=== PATIENT | female | born 1935 | race Caucasian/White ===

== ENCOUNTER 2016-07-09 13:04 | Inpatient (IN) | payer MEDICARE, OTHER ==
--- NOTE | ~2016-07-09 | IDS ---
Interim Discharge Summary [facility] [address] [address] NAME: DERECK YOUNGBLOOD : 33 STATUS : ADM IN PAT#: [id number] AGE: 80 ADM/REG DATE : 07/09/16 MR#: [id number] REPORT SERV DATE: 07/13/16 DICTATED BY: RIAZ COLLINS DATE: 07/13/16 REPORT STATUS : Draft TRANSCRIBED BY: MODOmid DATE: 07/13/16 ADMISSION DATE: 07/09/2016 DISCHARGE DATE: Date of transfer to my colleague is 07/14/2016. Condition of the patient is stable. Diagnoses so far include melena or dark stool, this has resolved. The exact cause for this dark stool has not been found yet despite the patient having undergone EGD, colonoscopy, and also capsule endoscopy. EGD only revealed esophagitis and gastritis, and colonoscopy revealed diverticulosis with no bleeding. Hence, the patient underwent a PillCam study, and this has been completed also, and GI finally has signed off saying that as her hemoglobin and hematocrit are stable, there is no need for any further GI workup. However, the patient has retained the PillCam and has not passed it in her stool yet as she has not had a bowel movement. Hence, her discharge is being held as the PillCam has not been passed. Other diagnoses that are stable at this time include the following: Chronic systolic and diastolic heart failure with an ejection fraction of about 50%, global ventricular enlargement, left atrial enlargement and moderate right atrial enlargement, moderate mitral regurgitation, severe tricuspid regurgitation, moderate pulmonary hypertension. All these findings on echocardiogram. Chronic atrial fibrillation for which the patient takes Coumadin on a regular basis. As the patient does not have any melanotic stools anymore, her Coumadin has been resumed today. Her INR is subtherapeutic, but hopefully with her home dose of Coumadin that she will be back on her INR and will get therapeutic eventually. Other problems also include bilateral thyroid nodules. These have been biopsied, and they are benign. BRIEF HOSPITAL COURSE: The patient is an 80-year-old female patient, who was admitted with signs and symptoms as outlined in history and physical exam. Essentially, the main reason for admission was dark stools. GI was consulted. The patient also requested that Dr. Major, her policy intern, be consulted while in the hospital to clear her for colonoscopy. Dr. Major did consult and cleared her for EGD and colonoscopy at this time, and hence, the patient underwent both and findings have been dictated above and no signs of active or acute bleeding were found. Hence, the patient underwent a PillCam study, and capsule endoscopy studies are pending by GI at this time, but the problem now is that the patient has retained PillCam, and she has not passed it yet. Once the patient passes the PillCam, she can be discharged home. At this time, we have restarted the patient on Coumadin, her regular home dose, so she can stay therapeutic on her INR and INR be between 2 and 3 for chronic atrial fibrillation. The patient has tolerated the Coumadin so far and has no more episodes of melena. Please discharge the patient home once her PillCam is passed. My colleague will be taking over care of this patient on 07/14/2016. Interim Discharge Summary [address] [address] NAME: DERECK YOUNGBLOOD : 33 STATUS : ADM IN PAT#: [id number] AGE: 80 ADM/REG DATE : 07/09/16 MR#: [id number] REPORT SERV DATE: 07/13/16 DICTATED BY: RIAZ COLLINS DATE: 07/13/16 REPORT STATUS : Draft TRANSCRIBED BY: YEYO DATE: 07/13/16 SARITHA/YEYO Riaz Collins M.D. / [id number] CC: Brooke Bernstein II, M.D.
--- NOTE | ~2016-07-09 | EGD ---
EGD REPORT [facility] [address]. [address] NAME: DERECK SINGER : 33 STATUS : DIS IN PAT#: [id number] AGE: 80 ADM/REG DATE : 07/09/16 MR#: [id number] REPORT SERV DATE: 07/14/16 DICTATED BY: DAVID SANTIAGO DATE: 07/14/16 REPORT STATUS : Draft [facility]: [facility] DATE: 07/14/16 Endoscopy Center Patient Name: Dereck Singer Date of : 1935 Attending MD: DAVID SANTIAGO MD Procedure Date No Time: 07/12/2016 Procedure: Colonoscopy Indications: Melena Referring MD: MELLISA WHYTE II Medicines: Sedation Required Anesthesia Staff Assistance Complications: No immediate complications. Estimated blood loss: Minimal. Procedure: Pre-Anesthesia Assessment: - ASA Grade Assessment: III - A patient with severe systemic disease. After I obtained informed consent, the scope was passed under direct vision. Throughout the procedure, the patient's blood pressure, pulse, and oxygen saturations were monitored continuously. The PCF [id number] was introduced through the anus and advanced to the cecum, identified by appendiceal orifice and ileocecal valve. The colonoscopy was performed without difficulty. The patient tolerated the procedure well. The quality of the bowel preparation was good. The ileocecal valve, appendiceal orifice and rectum were photographed. Findings: A sessile polyp was found in the cecum. The polyp was 6 mm in size. The polyp was removed with a cold snare. Resection and retrieval were complete. A few small-mouthed diverticula were found in the sigmoid colon. The exam was otherwise without abnormality. Impression: - One 6 mm polyp in the cecum. Resected and retrieved. - Diverticulosis in the sigmoid colon. - The examination was otherwise normal. Recommendation: - [facility] patient [facility]. - NPO today. - Await pathology results. - Continue present medications. - To visualize the small bowel, perform video capsule endoscopy today. Procedure Code(s): --- Professional --- EGD REPORT [facility] [address]. [address] NAME: DERECK SINGER : 33 STATUS : DIS IN PAT#: [id number] AGE: 80 ADM/REG DATE : 07/09/16 MR#: [id number] REPORT SERV DATE: 07/14/16 DICTATED BY: DAVID SANTIAGO. DATE: 07/14/16 REPORT STATUS : Draft TRANSCRIBED BY: [employer] DATE: 07/14/16 [id number], Colonoscopy, flexible, proximal to splenic flexure; with removal of tumor(s), polyp(s), or other lesion(s) by snare technique Diagnosis Code(s): --- Professional --- D12.0, Benign neoplasm of cecum K92.1, Melena CPT copyright 2013 [employer]. All rights reserved. The codes documented in this report are preliminary and upon finance effectiveness manager review may be revised to meet current compliance requirements. DAVID SANTIAGO MD 07/12/2016 8:35 AM This report has been signed electronically. Number of Addenda: 0 Note Initiated On: 07/12/2016 7:26 AM Scope Withdrawal Time 0 hours 7 minutes 8 seconds [address] [address]
--- NOTE | ~2016-07-09 | DS ---
Discharge Summary [place] [id number] [facility] [place]. [address] NAME: DERECK YOUNGBLOOD : 33 STATUS : DIS IN PAT#: [id number] AGE: 80 ADM/REG DATE : 07/09/16 MR#: [id number] REPORT SERV DATE: 07/15/16 DICTATED BY: DATE: REPORT STATUS : Draft TRANSCRIBED BY: MODL DATE: 07/14/16 ADMISSION DATE: 07/09/2016 DISCHARGE DATE: 07/14/2016 The patient was admitted to the [facility]. ATTENDING PHYSICIAN: Endy Lamar M.D. CONSULTANTS: Included: 1. Dr. Shields of Gastroenterology. 2. Dr. Henok Major of Cardiology. DISCHARGE DIAGNOSES: 1. Melena, resolved. Source unclear. EGD, colonoscopy, PillCam negative for old or fresh bleeding. 2. Chronic obstructive pulmonary disease. 3. Pulmonary hypertension. 4. Obstructive sleep apnea, home CPAP-dependent. 5. Congestive heart failure, chronic, mixed systolic and diastolic. 6. Chronic atrial fibrillation, on anticoagulation, status post pacemaker placement. 7. Hypertension, controlled on home medications. 8. Hyperlipidemia. 9. Chronic kidney disease, stage II, baseline creatinine 1.1 to 1.2. 10.History of coronary artery disease with cardiac stents in 1997. 11.Degenerative disk disease of the lumbar spine and spinal stenosis. Narcotic dependent due to chronic back pain. 12.Generalized anxiety disorder, benzodiazepine dependent. 13.History of bilateral thyroid nodules, previous biopsies benign. PROCEDURES: 1. Included upper GI endoscopy on 07/11/2016 for melena shows LA grade A reflux esophagitis. Normal stomach. Normal examined duodenum. Biopsies were obtained. 2. Colonoscopy on 07/12/2016, for melena showed one 6 mm polyp in the cecum, which was resected and retrieved. Diverticulosis of the sigmoid colon. 3. Small bowel capsule endoscopy on 07/12/2016, for melena shows no active bleeding or potential source seen in the small bowel. IMAGIN. Neck CT without contrast on 07/09/2016, for voice change shows complex partially calcified 3.1 x 2.5 cm right thyroid nodule. 2.4 x 1.5 cm nodule in the left lobe of the thyroid. No adenopathy. 2. PA lateral chest x-ray on 07/09/2016, shows calcified atherosclerotic disease of the aorta. Pacemaker lead intact. Mild chronic changes in the lung rahman consistent with COPD. No lung masses or significant infiltrate seen. 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 Exaggerated kyphotic angulation in the lower T-spine. Discharge Summary [place] [id number] [facility] [place] [address] NAME: DERECK YOUNGBLOOD : 33 STATUS : DIS IN PAT#: [id number] AGE: 80 ADM/REG DATE : 07/09/16 MR#: [id number] REPORT SERV DATE: 07/15/16 DICTATED BY: DATE: REPORT STATUS : Draft TRANSCRIBED BY: MODL DATE: 07/14/16 3. Echocardiogram on 07/10/2016, shows enlarged left ventricle at end-systole, inferobasal hypokinesis, apical akinesis to dyskinesis, mild reduction in global left ventricular systolic function. Severe late left atrial enlargement with moderate right atrial enlargement. Finding suggestive of atrial fibrillation or flutter. Eccentric moderate mitral regurgitation with severe tricuspid regurgitation and moderate pulmonary hypertension. PERTINENT LABORATORY: Creatinine values ranging from 1.1 to 1.2. Liver enzymes pertinent for AST of 46, otherwise normal. BNP values between 483 and 561. Hemoglobin values between 10.5 and 11.7. Urinalysis, negative. BRIEF HISTORY: For full details, please see the previously dictated history of present illness by Dr. Rosemarie Domingo. This is an 80-year-old white female, who presented to the emergency department on 07/09/2016 with chief complaints of dark black stools, off and on for two to three weeks. The patient had some associated fatigue, intermittent epigastric abdominal pain, progressive dysphagia, and a change in voice. She takes Coumadin chronically for atrial fibrillation and was admitted through the Hospitalist Service for GI evaluation. HOSPITAL COURSE: For full details, please see the interim summary dictated by Dr. Rosemarie Domingo on 07/13/2016. The patient's Coumadin was held at admission and serial hemoglobin and hematocrit values were obtained. She was continued on a PPI and IV fluids. She had no significant decline in her hemoglobin during the admission and did not require transfusion. She remained hemodynamically stable. Gastroenterology and Cardiology saw the patient on this admission. Cardiology cleared the patient for invasive GI evaluations, which included EGD, colonoscopy, and small bowel capsule endoscopy with results as above. The patient did not experience any recurrent melena or other GI bleeding during the admission and was felt stable for discharge on 07/14/2016. She had not passed the PillCam specifically, but is also not required to do so by Gastroenterology. She will follow up with Dr. Padgett within four to six week, and recommendation was for her to continue proton pump inhibitor for six weeks total, then to be re-evaluated. She previously was taking Nexium at home, but requested to change to Protonix, and a prescription was provided. Remainder of her home medications were unchanged at the time of discharge. Her discharge INR value is 1.3. She checks her INR at home, and the results are called to Dr. Henok Major for further adjustments. The patient is due to check her INR on 07/17/2016. DISCHARGE DISPOSITION: To home, in the care of supportive family with no specific activity restrictions. She should adhere to a cardiac diet for comorbidities. Home Health is being arranged through [facility] for disease and medication management, and the patient will check her own INR with results to Dr. Major as above. FOLLOWUP: Her followup appointment will be with Dr. Padgett within four to six weeks, and she should keep any previously scheduled physician's appointments as well. Discharge Summary [address] [address] NAME: DERECK YOUNGBLOOD : 33 STATUS : DIS IN PAT#: [id number] AGE: 80 ADM/REG DATE : 07/09/16 MR#: [id number] REPORT SERV DATE: 07/15/16 DICTATED BY: DATE: REPORT STATUS : Draft TRANSCRIBED BY: YEYO DATE: 07/14/16 DISCHARGE MEDICATIONS: Include: 1. Xanax 0.5 to 1 mg p.o. three times a day. 2. Amlodipine 5 mg p.o. q.a.m. 3. Bumex 2 mg p.o. q.a.m. 4. TriCor 145 mg p.o. q.a.m. 5. Folic acid 1 mg p.o. q.a.m. 6. Hydrocodone/acetaminophen 10/325 mg p.o. four times a day. 7. Lisinopril 10 mg p.o. q.a.m. 8. Toprol-XL 100 mg p.o. q.a.m. 9. Protonix 40 mg p.o. daily. 10.Potassium chloride 40 mEq p.o. daily. 11.Viagra 50 mg p.o. three times a day. 12.Spiriva one cap inhaled q.a.m. 13.Jantoven 3.5 mg p.o. at bedtime. 14.ProAir HFA two puffs inhaled every four hours as needed. 15.Symbicort 160/4.5 two puffs inhaled twice a day. 16.Colace 100 mg p.o. daily as needed. 17.Crestor 20 mg p.o. at bedtime. 18.Lunesta 3 mg p.o. at bedtime as needed for sleep. 19.Acetaminophen 500 to 1000 mg p.o. twice a day as needed for headaches. 20.Sensipar 30 mg p.o. daily on Wednesday, Wednesday, Wednesday. 21.Aspirin 81 mg p.o. q.a.m. Thirty-five minutes was spent in completion of the discharge. ZAKI/YEYO Endy Lamar M.D. / [id number] CC: Brooke Bernstein II, M.D. Nathan Mull IV, M.D. Donald Hetzel, M.D. Leonard Hays III, M.D., [facility]
--- NOTE | ~2016-07-09 | EGD ---
EGD REPORT [facility] [address] [address] NAME: DERECK SINGER : 33 STATUS : ADM IN PAT#: [id number] AGE: 80 ADM/REG DATE : 07/09/16 MR#: [id number] REPORT SERV DATE: 07/11/16 DICTATED BY: DAVID SANTIAGO DATE: 07/11/16 REPORT STATUS : Draft [facility]ANSCRIBED BY: [facility] DATE: 07/11/16 Endoscopy Center Patient Name: Dereck Singer Date of : 1935 Attending MD: DAVID SANTIAGO MD Procedure Date No Time: 07/11/2016 Procedure: Upper GI endoscopy Indications: Iron deficiency anemia, Melena Referring MD: MELLISA WHYTE II Medicines: Sedation Required Anesthesia Staff Assistance Complications: No immediate complications. Estimated blood loss: Minimal. Procedure: Pre-Anesthesia Assessment: - ASA Grade Assessment: III - A patient with severe systemic disease. After obtaining informed consent, the endoscope was passed under direct vision. Throughout the procedure, the patient's blood pressure, pulse, and oxygen saturations were monitored continuously. The [facility] H190 [id number] was introduced through the mouth, and advanced to the third part of duodenum. The upper GI endoscopy was accomplished without difficulty. The patient tolerated the procedure well. Findings: LA Grade A (one or more mucosal breaks less than 5 mm, not extending between tops of 2 mucosal folds) esophagitis with no bleeding was found in the lower third of the esophagus. The entire examined stomach was normal. The examined duodenum was normal. Biopsies were taken with a cold forceps for histology. Impression: - LA Grade A reflux esophagitis. - Normal stomach. - Normal examined duodenum. Biopsied. Recommendation: - Await pathology results. - Return patient to [facility] for [facility] care. - Continue present medications. - Perform a colonoscopy tomorrow. Procedure Code(s): --- Professional --- 27678, Esophagogastroduodenoscopy, flexible, transoral; with biopsy, single or multiple EGD REPORT [facility] [address] [place], [place] [address]. [address] NAME: DERECK SINGER : 33 STATUS : ADM IN [facility]#: [id number] AGE: 80 ADM/REG DATE : 07/09/16 MR#: [id number] REPORT SERV DATE: 07/11/16 DICTATED BY: DAVID SANTIAGO. DATE: 07/11/16 REPORT STATUS : Draft TRANSCRIBED BY: [employer] DATE: 07/11/16 Diagnosis Code(s): --- Professional --- K21.0, Gastro-esophageal reflux disease with esophagitis D50.9, Iron deficiency anemia, unspecified K92.1, Melena CPT copyright 2013 [employer]. All rights reserved. The codes documented in this report are preliminary and upon sales administration specialist review may be revised to meet current compliance requirements. DAVID SANTIAGO MD 07/11/2016 8:03 AM This report has been signed electronically. Number of Addenda: 0 Note Initiated On: 07/11/2016 7:33 AM Scope Withdrawal Time 0 hours 0 minutes 0 seconds [address] [place] [place] [address]
--- NOTE | ~2016-07-09 | HP ---
History And Physical [place] [id number] [facility] [place]. [address] NAME: DERECK SINGER : 33 STATUS : ADM IN [facility]#: [id number] AGE: 80 ADM/REG DATE : 07/09/16 MR#: [id number] REPORT SERV DATE: 07/09/16 DICTATED BY: RIAZ COLLINS DATE: 07/09/16 REPORT STATUS : Draft TRANSCRIBED BY: MODOmid DATE: 07/09/16 DATE OF ADMISSION: 07/09/2016 CHIEF COMPLAINT: The patient states that she has been having dark black stools, off and on, for the last two to three weeks at least. This concerned her and she thought that she was passing blood in her stool, and this morning when she got up and felt tired and also noticed that she had dark stools again, she decided to come into the ER. Besides this, she also has multiple other complaints including epigastric abdominal pain, off and on, difficulty swallowing that has been progressively getting worse for the last several weeks, nodules that she has noticed in the throat for the last several weeks and also a change in voice with difficulty in bringing out her voice at times as she describes for the last several weeks to months also. The patient denies any weight loss. The patient denies any chest pain or headaches. She denies any other pain in any other place in the body. She does have chronic low back pain for which she takes medications on a regular basis. Other than that, there is no other new pain. The patient denies any neurological deficits or weakness in any particular hand or leg, denies any facial weakness. Does complain of difficulty swallowing, off and on, especially too hard solids according to the patient and she attributes this to some nodules that she has felt in the neck. REVIEW OF SYSTEMS: As above. PAST MEDICAL HISTORY: The patient is an 80-year-old patient with multiple comorbidities some of which were picked up from the patient and some of it from [employer] and previous charts. She mainly has heart issues that include chronic atrial fibrillation, status post pacemaker placement and on chronic anticoagulation with Coumadin; chronic diastolic heart failure; chronic pulmonary hypertension; and chronic biatrial enlargement. Dr. Major is her radiator core tester. The patient also has a history of coronary artery disease. She also has history of obstructive sleep apnea for which she uses CPAP machine on a regular basis, COPD, osteoarthritis, and chronic low back pain from degenerative disk disease of the lumbar spine for which she uses narcotics on a regular basis with significant relief. The patient also has chronic kidney disease and she has been told that it is in the early stages, and Dr. Moreno is her visual developer. SOCIAL HISTORY: The patient does not smoke any more. She quit smoking about 10 years ago. Denies any alcohol use on a regular basis. Denies any illegal drug use. The patient does have family history of esophageal cancer which has worried the patient even more as the patient's daughter, Myranda Singer, was also my patient and from esophageal cancer which the patient wants me to note. FAMILY HISTORY: As above. MEDICATIONS AND ALLERGIES: Her chronic medications and allergies include the following: The patient reports that she is allergic to oxycodone from Percocet, sertraline from Zoloft. History And Physical [address] [address] NAME: DERECK SINGER : 33 STATUS : ADM IN [facility]#: [id number] AGE: 80 ADM/REG DATE : 07/09/16 MR#: [id number] REPORT SERV DATE: 07/09/16 DICTATED BY: RIAZ COLLINS DATE: 07/09/16 REPORT STATUS : Draft TRANSCRIBED BY: YEYO DATE: 07/09/16 She takes the following medications at home on a regular basis: Crestor 20 mg p.o. daily, Tricor or fenofibrate 145 mg once a day, Jantoven or Coumadin 3.5 mg p.o. at bedtime, [place] 10/325 one p.o. four times a day p.r.n. for pain, folic acid 1 mg every morning, Nexium 40 mg once a day, Bumex 2 mg every morning, Viagra 50 mg p.o. t.i.d. for pulmonary hypertension, Xanax 0.5 mg to 1 mg p.o. t.i.d. for anxiety, Toprol-XL 100 mg once a day, amlodipine 5 mg once a day, lisinopril 10 mg once a day, potassium chloride 20 mEq once a day, albuterol two puffs every four hours p.r.n., Symbicort two puffs twice a day, Lunesta 3 mg at bedtime, Spiriva inhaler one capsule every morning, and also aspirin 81 mg tablets once a day. PHYSICAL EXAMINATION: GENERAL: The patient is alert, oriented, and is able to give all her history herself. She does have dysphonia, and at times before she finishes her sentence, her voice gets cut off. However, she is able to give all her history herself and is alert and oriented. VITAL SIGNS: Her vital signs show that her blood pressure is 154/73. The patient is afebrile. Pulse is 64 per minute, respirations 20 per minute, and SpO2 93% on room air. HEENT: Unremarkable. There is no facial asymmetry or facial droop. NECK: There are multiple nodules felt in the neck, the biggest one is felt on the right side. The nodule itself appears firm and somewhat irregular. There is no tenderness, however. The patient states that she has been diagnosed with thyroid nodules in the past. Other than these nodules that are felt bilaterally in the neck, there are no other masses that I could feel. CARDIOVASCULAR SYSTEM: S1 and S2 appreciated. Irregular rhythm noted. Pacemaker is in place on the chest wall. RESPIRATORY SYSTEM: Clear lungs. There are no rales or rhonchi noted at this time, but diminished breath sounds noted especially at the bases of the lungs. ABDOMEN: Soft. There is mild tenderness in the epigastric area, but there is no guarding or rigidity. Abdomen itself is obese. I could not appreciate any masses. No hepatosplenomegaly. Bowel sounds are plus. EXTREMITIES: There is no pedal edema. Pedal pulses are well felt. NEUROLOGICAL: No deficits at this time. PSYCHIATRIC: Positive for generalized anxiety disorder and depression. MUSCULOSKELETAL: Other than chronic low back pain for which she takes narcotic medications, [place], on a regular basis, there are no other acute problems as of now. LABORATORY DATA: Lab results that I have on this patient include a CBC that shows completely normal CBC. INR, however, is 1.3 and the patient is subtherapeutic. She states that she did not take Coumadin the last few days, worried that her bleeding would get worse. Her comprehensive metabolic profile shows sodium 139, potassium 3.6, BUN 16, creatinine is 1.2 (the patient has chronic kidney disease). LFTs are fairly within normal, but troponin I is slightly elevated at 0.4. Her urinalysis is normal. Her chest x-ray, PA and lateral view shows no acute cardiopulmonary abnormality. Her neck CT scan without contrast that was performed shows a History And Physical [address] [place]. [address] NAME: DERECK SINGER : 33 STATUS : ADM IN PAT#: [id number] AGE: 80 ADM/REG DATE : 07/09/16 MR#: [id number] REPORT SERV DATE: 07/09/16 DICTATED BY: RIAZ COLLINS DATE: 07/09/16 REPORT STATUS : Draft TRANSCRIBED BY: MODL DATE: 07/09/16 complex partially calcified 3 x 2.5 cm right thyroid nodule and the patient also has a 2.4 x 1.5 cm left thyroid nodule too. No other adenopathy was noticed. This nodule on the right side was described as a complex partially calcified nodule. ASSESSMENT: My assessment in this patient is acute or subacute melena/upper gastrointestinal bleed in the setting of coagulopathy/chronic Coumadin use, hence even though the patient is hemodynamically stable and her hemoglobin and hematocrit appear normal as of now, she does need an upper endoscopy and probably a colonoscopy too, so we will admit the patient and get GI consult as a routine. We will hold her Coumadin for now and keep her on SCDs only for DVT prophylaxis. The patient has multiple cardiac issues including coronary artery disease; chronic atrial fibrillation, on chronic anticoagulation; pacer placement; diastolic heart failure; pulmonary hypertension; and biatrial enlargement for which she follows up with Dr. Major and the patient is requesting Dr. Major see her, hence, we will consult him. For GI, the patient is specifically requesting Dr. Padgett, so we will consult him. Regarding the thyroid nodule that is there, the most prominent one is there on the right side, hence, we will try to biopsy this under ultrasound guidance while the Coumadin is being held anyways. This has also been ordered. We will follow the patient's CBC and BMP in the morning. The patient has not had echocardiogram in a while, hence, we will check a 2D echocardiogram too for her multiple cardiac abnormalities and chronic heart issues. Further tests are up to Dr. Major to order. We will admit the patient under monitored bed to [address] [place] [address] and I will follow the patient. SARITHA/VIKYL Riaz Collins M.D. / [id number] CC: Brooke Bernstein II, M.D.
--- NOTE | ~2016-07-09 | CN ---
Consultation Report [facility] [address] [place]. [address] NAME: DERECK SINGER : 33 STATUS : ADM IN PAT#: [id number] AGE: 80 ADM/REG DATE : 07/09/16 MR#: [id number] REPORT SERV DATE: 07/10/16 DICTATED BY: MAE LAUREN DATE: 07/10/16 REPORT STATUS : Draft TRANSCRIBED BY: MODL DATE: 07/10/16 GI CONSULTATION DATE OF CONSULTATION: 07/10/2016 REASON FOR CONSULTATION: Evaluation and management of melena. HISTORY OF PRESENT ILLNESS: Ms. Singer is a very pleasant 80-year-old, female, patient who presented to [facility] on 07/09/2016 with a chief complaint of dark stools for the last one to two weeks as well as epigastric abdominal pain that per herself has been ongoing for a short period of time. The family members at the bedside refutes this and states that it has actually been going on for quite a while and has progressively worsened. She states that for the last several weeks she has had some difficulty in swallowing and feeling like there was some liquid coming back up. She has noticed that she had some nodules on the right side of her throat as well as a change in her voice with a "cracking" at times and her not being able to get out her words. She states that she has not lost weight. She has not seen any bright red blood per rectum. She has not had any chest pain or shortness of breath but does state it has been difficult for her to swallow especially solids but she denies really true odynophagia. She had a CT scan of the neck done on admission that showed a complex partially calcified 3.1 x 2.5 cm right thyroid nodule. Also shows a 2.4 x 1.5 nodule in the left lobe of the thyroid gland. She has been set up to have an ultrasound guided biopsy of the thyroid. I have discussed with the patient at the bedside. Her Coumadin has been on hold, her INR is 1.3. We will plan to proceed with EGD tomorrow, possibly dilation if needed to further evaluate her dysphagia and melena complaints. Her hemoglobin on admission was 12 but recheck was 10.5. I will plan on monitoring that every six hours, transfusing if she needs it, she is currently on a Protonix drip which we will continue until her endoscopy has been complete. I did discuss with her the risks, benefits, alternatives, and complications of EGD to include, but not limited to risk of bleeding, perforation, infection, reaction to medication, as well as cardiac pulmonary side effects. She is agreeable to proceed. It should be noted that her community support associate Dr. Major has seen the patient and cleared her for endoscopy. PAST MEDICAL HISTORY: Positive for cor pulmonale with RV failure, atrial fib, coronary artery disease on Coumadin. She is status post pacemaker, chronic diastolic heart failure, pulmonary hypertension, bilateral enlargement, COPD, obstructive sleep apnea with CPAP usage, osteoarthritis, history of past tobacco abuse, chronic low back pain, degenerative disc disease, chronic narcotic pain medications, and chronic kidney disease. SOCIAL HISTORY: Past tobacco, cessation multiple years ago. Denies alcohol. Denies any illicit drugs. FAMILY HISTORY: She has a family history of esophageal cancer in her daughter Myranda who has since passed secondary to the esophageal cancer. Consultation Report [address] [address] NAME: DERECK SINGER : 33 STATUS : ADM IN PAT#: [id number] AGE: 80 ADM/REG DATE : 07/09/16 MR#: [id number] REPORT SERV DATE: 07/10/16 DICTATED BY: MAE LAUREN DATE: 07/10/16 REPORT STATUS : Draft TRANSCRIBED BY: YEYO DATE: 07/10/16 ALLERGIES: LISTED TO PERCOCET AND ZOLOFT. HOME MEDICATIONS: Tylenol, albuterol, Xanax, Norvasc, aspirin, Symbicort, Bumex, Sensipar, Colace, Nexium, Lunesta, TriCor, folic acid, Republic, Proventil, Toprol, potassium, Crestor, Viagra, Spiriva, and Jantoven. REVIEW OF SYSTEMS: A 10-point review of systems has been obtained with pertinent positives being addressed in the history of present illness. PERTINENT LABORATORY DATA: Sodium is 141, potassium 3.1, BUN is 14, creatinine 1.04, white count 5, hemoglobin 10.5, hematocrit 32.4, platelet count 151, and INR 1.3. PHYSICAL EXAMINATION: VITAL SIGNS: Temperature is 97.9, pulse 63, respirations 18, blood pressure 174/79. GENERAL: Physical exam reveals an alert, elderly female, resting in bed. She is alert and oriented x3. In general, she is cooperative. She is in no acute distress. Her voice does have cracking in it. It takes her longer to express her symptoms. NECK: She has positive palpable nodules in the right side of her neck. LUNGS: Decreased throughout with normal respiratory effort exhibited. CARDIOVASCULAR SYSTEM: Atrial fibrillation with controlled rate. ABDOMEN: Soft, mildly tender to the epigastric region. No rebound or guarding elicited on exam. No organomegaly. EXTREMITIES: No edema. Normal distal pulses. SKIN: Warm, dry, and intact. ASSESSMENT AND PLAN: 1. Melena with Hemoccult-positive stools. Differential diagnosis includes peptic ulcer disease, AVMs, esophageal mass, gastritis. 2. Anemia with a mild drop in hemoglobin from admission 12 to 10.5. 3. Atrial fibrillation, coronary artery disease, pacemaker, on Coumadin, currently on hold. 4. Questionable thyroid mass/nodule on ultrasound biopsy. 5. Elevated troponin, however, per Cardiology this is really related to her cor pulmonale with RV failure. PLAN: 1. Continue Protonix drip. 2. N.p.o. after midnight. 3. EGD with Dr. Monzon on the . 4. Follow H and H, transfuse if needed. Other recommendations to follow endoscopy. DG/MODL Consultation Report [address] [place]. [address] NAME: DERECK SINGER : 33 STATUS : ADM IN [facility]#: [id number] AGE: 80 ADM/REG DATE : 07/09/16 MR#: [id number] REPORT SERV DATE: 07/10/16 DICTATED BY: MAE LAUREN DATE: 07/10/16 REPORT STATUS : Draft TRANSCRIBED BY: YEYO DATE: 07/10/16 IFTIKHAR Luna / [id number] CC: Brooke Bernstein II, M.D.
--- NOTE | ~2016-07-09 | EGD ---
EGD REPORT [facility] [address] [address] NAME: DERECK SINGER : 33 STATUS : ADM IN PAT#: [id number] AGE: 80 ADM/REG DATE : 07/09/16 MR#: [id number] REPORT SERV DATE: 07/12/16 DICTATED BY: DAVID SANTIAGO DATE: 07/12/16 REPORT STATUS : Draft [facility]ANSCRIBED BY: [facility] DATE: 07/12/16 Endoscopy Center Patient Name: Dereck Singer Date of : 1935 Attending MD: DAVID SANTIAGO MD Procedure Date No Time: 07/12/2016 Procedure: Colonoscopy Indications: Melena Referring MD: MELLISA WHYTE II Medicines: Sedation Required Anesthesia Staff Assistance Complications: No immediate complications. Estimated blood loss: Minimal. Procedure: Pre-Anesthesia Assessment: - ASA Grade Assessment: III - A patient with severe systemic disease. After I obtained informed consent, the scope was passed under direct vision. Throughout the procedure, the patient's blood pressure, pulse, and oxygen saturations were monitored continuously. The PCF [id number] was introduced through the anus and advanced to the cecum, identified by appendiceal orifice and ileocecal valve. The colonoscopy was performed without difficulty. The patient tolerated the procedure well. The quality of the bowel preparation was good. The ileocecal valve, appendiceal orifice and rectum were photographed. Findings: A sessile polyp was found in the cecum. The polyp was 6 mm in size. The polyp was removed with a cold snare. Resection and retrieval were complete. A few small-mouthed diverticula were found in the sigmoid colon. The exam was otherwise without abnormality. Impression: - One 6 mm polyp in the cecum. Resected and retrieved. - Diverticulosis in the sigmoid colon. - The examination was otherwise normal. Recommendation: - [facility]. - NPO today. - Await pathology results. - Continue present medications. - To visualize the small bowel, perform video capsule endoscopy today. Procedure Code(s): --- Professional --- EGD REPORT [facility] [address] [address] NAME: DERECK SINGER : 33 STATUS : ADM IN [facility]#: [id number] AGE: 80 ADM/REG DATE : 07/09/16 MR#: [id number] REPORT SERV DATE: 07/12/16 DICTATED BY: DAVID SANTIAGO. DATE: 07/12/16 REPORT STATUS : Draft TRANSCRIBED BY: [employer] DATE: 07/12/16 [id number], Colonoscopy, flexible, proximal to splenic flexure; with removal of tumor(s), polyp(s), or other lesion(s) by snare technique Diagnosis Code(s): --- Professional --- D12.0, Benign neoplasm of cecum K92.1, Melena CPT copyright 2013 [employer]. All rights reserved. The codes documented in this report are preliminary and upon assembler steam and gas turbine review may be revised to meet current compliance requirements. DAVID SANTIAGO MD 07/12/2016 8:35 AM This report has been signed electronically. Number of Addenda: 0 Note Initiated On: 07/12/2016 7:26 AM Scope Withdrawal Time 0 hours 7 minutes 8 seconds [address] [id number]
[~2016-07-09 13:04] MED LIST: *HOMEMEDS; ADVAIR250 INH; ALBUTEROL5 INH; AMARYL4 PO; ASAB PO; BENICAR20 PO; BUM1 PO; BUM2 PO; C1 PO; C25; C5 PO; CALTRA600D PO; CAT1 PO; CRESTOR20 MG PO; CYANO1000T PO; FISH-EPA1000 MG PO; FLEX PO; FLEXERIL5 MG PO; FOLIC PO; HALF81 PO; HYGROTON 25 MG25 MG PO; JANTOVEN4 MG PO; K-TABS10 MEQ; KDUR20 PO; LISINOPRIL; LORTAB10 PO; LUNESTA3 MG PO; MAGOX4 PO; MULTIVITAMI1 PO; NEXIUM40 PO; NORCO1 TAB PO; NORV10 PO; NORV25 PO; NORV5 PO; NORVASC; OMNICEF300 PO; PREV30 PO; PRIN2.5 PO; PRIN5 PO; PROAIR HFA INH; PROAIR HFA PO; SPIRIVA INH; SUCR PO; SYMBICORT 160/41 INH INH; TEKTURNA300 MG PO; TOPXL100 PO; TRICOR145 PO; VIAGRA25 PO; VIAGRA50 MG PO; VITAMIN B-121000 MC1 SL; VITAMIN D1000 UNI1 PO; VITAMINS; X25 PO; X5 PO; XANAX1 MG PO
[2016-07-09 14:02] LABS: ASCORBIC ACID (UR NOT ORDER) NEG (NEG); BILIRUBIN, URINE NEGATIVE (NEG); ER URINALYSIS TAT 0 Hrs 11 Mins; KETONE, URINE NEGATIVE (NEG); LEUKOCYTE ESTERASE(NOT OR NEG (NEG); NITRITE (URINE) NEG (NEG); WBC (NOT ORDERED) (RFLEX) 2 (0-5)
[2016-07-09 14:13] LABS: BASOPHILS 0.3 %; BASOPHILS ABSOLUTE 0.02 10/3/uL (0.0-0.16); EOSINOPHILS 0.5 %; EOSINOPHILS ABSOLUTE 0.04 10/3/uL (0.0-0.53); HEMATOCRIT 37.1 % (36.0-48.0); IMMATURE GRANULOCYTES 0.4 %; IMMATURE GRANULOCYTES ABSOLUTE 0.03 10/3/uL (0.0-0.11); LYMPHOCYTES 22.4 %; LYMPHOCYTES ABSOLUTE 1.77 10/3/uL (0.67-4.30); MANUAL DIFF NO %; MEAN CORPUS HGB CONC 32.3 g/dL (32.0-36.0); MEAN CORPUSCULAR VOLUME 92.8 fL (80-100); MEAN PLATELET VOLUME 9.4 fL (9.2-13.0); MONOCYTES 9.2 %; MONOCYTES ABSOLUTE 0.73 10/3/uL (0.21-1.20); NEUTROPHILS 67.2 %; NEUTROPHILS ABSOLUTE 5.32 10/3/uL (2.02-8.40); PLATELET COUNT 184 10/3/uL (150-400); RBC DISTRIBUTION WIDTH 14.8 % (12.0-16.0); WHITE BLOOD CELLS 7.9 10/3/uL (4.5-10.5)
[2016-07-09 14:18] LABS: INTERNATIONAL NORMAL RATI 1.3 UNITS (-); PARTIAL THROMBO TIME 29.7 SEC (22.5-37.2)
[2016-07-09 14:19] LABS: PROTIME (NOT ORD) 15.9 SEC (12.0-14.5)
[2016-07-09 14:31] LABS: A/G RATIO 0.9 (0.7-1.9); ALBUMIN 3.9 G/DL (3.5-5.0); CHLORIDE, SERUM 103 MMOL/L (96-112); CO2 (CARBON DIOXIDE) 29 MMOL/L (24-34); CREATININE 1.22 MG/DL (0.55-1.02); GFR AFRICAN AMERICAN 48 ML/MIN (>=60); GFR NON AFRICAN AMERICAN 41 ML/MIN (>=60); GLOBULIN 4.4 G/DL (2.5-4.1); POTASSIUM, SERUM 3.6 MMOL/L (3.5-5.3); SGOT(AST) 46 U/L (5-40); SGPT(ALT) 19 U/L (5-65); SODIUM, SERUM 139 MMOL/L (135-148); TOTAL BILIRUBIN 1.1 MG/DL (0-1.2); TOTAL PROTEIN 8.3 G/DL (6.0-8.5)
[2016-07-09 14:32] LABS: ALKALINE PHOSPHATASE 71 U/L (45-117); BUN (BLOOD UREA NITROGEN) 16 MG/DL (6-23); CALCIUM, SERUM 8.2 MG/DL (8.5-10.4); GLUCOSE, SERUM 101 MG/DL (60-99)
[2016-07-09 14:33] LABS: TROPONIN I 0.41 NG/ML (<0.05)
[2016-07-09] MEDS ORDERED: DSS PO (18:06)
[2016-07-09] MEDS ORDERED: CRESTOR20 MG PO (18:06)
[2016-07-09] MEDS ORDERED: NORCO1 TAB PO (18:07)
[2016-07-09] MEDS ORDERED: JANTOVEN1 MG PO (18:07)
[2016-07-09] MEDS ORDERED: TRICOR145 PO (18:07)
[2016-07-09] MEDS ORDERED: FOLIC PO (18:07)
[2016-07-09] MEDS ORDERED: BUM2 PO (18:08)
[2016-07-09] MEDS ORDERED: VIAGRA50 MG PO (18:08)
[2016-07-09] MEDS ORDERED: NEXIUM40 PO (18:08)
[2016-07-09] MEDS ORDERED: X5 PO (18:09)
[2016-07-09] MEDS ORDERED: NORV5 PO (18:09)
[2016-07-09] MEDS ORDERED: TOPXL100 PO (18:09)
[2016-07-09] MEDS ORDERED: PRIN10 PO (18:10)
[2016-07-09] MEDS ORDERED: PROAIR HFA INH (18:10)
[2016-07-09] MEDS ORDERED: SYMBICORT 160/41 INH INH (18:10)
[2016-07-09] MEDS ORDERED: KLOR-CON M2020 MEQ PO (18:10)
[2016-07-09] MEDS ORDERED: LUNESTA3 MG PO (18:11)
[2016-07-09] MEDS ORDERED: ACET500CAP PO (18:11)
[2016-07-09] MEDS ORDERED: SPIRIVA INH (18:12)
[2016-07-09] MEDS ORDERED: HALF81 PO (18:12)
[2016-07-09] MEDS ORDERED: SENSIPAR30 M1 PO (18:12)
[2016-07-10 06:49] LABS: BASOPHILS 0.4 %; BASOPHILS ABSOLUTE 0.02 10/3/uL (0.0-0.16); EOSINOPHILS 1.2 %; EOSINOPHILS ABSOLUTE 0.06 10/3/uL (0.0-0.53); HEMOGLOBIN 10.5 g/dL (12.0-16.0); IMMATURE GRANULOCYTES 0.2 %; IMMATURE GRANULOCYTES ABSOLUTE 0.01 10/3/uL (0.0-0.11); LYMPHOCYTES 37.1 %; LYMPHOCYTES ABSOLUTE 1.85 10/3/uL (0.67-4.30); MEAN CORPUS HGB CONC 32.4 g/dL (32.0-36.0); MEAN CORPUSCULAR HEMOGLOB 29.9 pg (26.0-34.0); MEAN CORPUSCULAR VOLUME 92.3 fL (80-100); MEAN PLATELET VOLUME 9.2 fL (9.2-13.0); MONOCYTES 11.2 %; MONOCYTES ABSOLUTE 0.56 10/3/uL (0.21-1.20); NEUTROPHILS 49.9 %; NEUTROPHILS ABSOLUTE 2.48 10/3/uL (2.02-8.40); PLATELET COUNT 151 10/3/uL (150-400); RBC DISTRIBUTION WIDTH 14.6 % (12.0-16.0); RED CELL COUNT 3.51 10/6/uL (4.0-5.6)
[2016-07-10 06:51] LABS: BUN (BLOOD UREA NITROGEN) 14 MG/DL (6-23); CALCIUM, SERUM 7.5 MG/DL (8.5-10.4); CHLORIDE, SERUM 104 MMOL/L (96-112); CO2 (CARBON DIOXIDE) 29 MMOL/L (24-34); CREATININE 1.04 MG/DL (0.55-1.02); GFR AFRICAN AMERICAN 58 ML/MIN (>=60); GFR NON AFRICAN AMERICAN 50 ML/MIN (>=60); GLUCOSE, SERUM 89 MG/DL (60-99); POTASSIUM, SERUM 3.1 MMOL/L (3.5-5.3); SODIUM, SERUM 141 MMOL/L (135-148)
[2016-07-10 06:52] LABS: HEMATOCRIT 32.4 % (36.0-48.0); MANUAL DIFF NO %
[2016-07-11 05:08] LABS: BASOPHILS 0.2 %; BASOPHILS ABSOLUTE 0.01 10/3/uL (0.0-0.16); EOSINOPHILS 1.8 %; EOSINOPHILS ABSOLUTE 0.09 10/3/uL (0.0-0.53); HEMOGLOBIN 10.9 g/dL (12.0-16.0); IMMATURE GRANULOCYTES 0.4 %; IMMATURE GRANULOCYTES ABSOLUTE 0.02 10/3/uL (0.0-0.11); LYMPHOCYTES 45.9 %; MEAN CORPUS HGB CONC 32.1 g/dL (32.0-36.0); MEAN CORPUSCULAR VOLUME 93.7 fL (80-100); MEAN PLATELET VOLUME 9.4 fL (9.2-13.0); MONOCYTES 12.6 %; MONOCYTES ABSOLUTE 0.63 10/3/uL (0.21-1.20); NEUTROPHILS 39.1 %; NEUTROPHILS ABSOLUTE 1.96 10/3/uL (2.02-8.40); PLATELET COUNT 160 10/3/uL (150-400); RBC DISTRIBUTION WIDTH 14.8 % (12.0-16.0); RED CELL COUNT 3.63 10/6/uL (4.0-5.6)
[2016-07-11 05:09] LABS: MANUAL DIFF NO %
[2016-07-11 05:17] LABS: INTERNATIONAL NORMAL RATI 1.4 UNITS (-); PROTIME (NOT ORD) 16.7 SEC (12.0-14.5)
[2016-07-11 05:21] LABS: BUN (BLOOD UREA NITROGEN) 14 MG/DL (6-23); CHLORIDE, SERUM 105 MMOL/L (96-112); CO2 (CARBON DIOXIDE) 28 MMOL/L (24-34); CREATININE 1.11 MG/DL (0.55-1.02); GFR AFRICAN AMERICAN 54 ML/MIN (>=60); GFR NON AFRICAN AMERICAN 46 ML/MIN (>=60); GLUCOSE, SERUM 100 MG/DL (60-99); SODIUM, SERUM 140 MMOL/L (135-148)
[2016-07-11 05:22] LABS: POTASSIUM, SERUM 4.4 MMOL/L (3.5-5.3)
[2016-07-12 07:08] LABS: BASOPHILS 0.1 %; BASOPHILS ABSOLUTE 0.01 10/3/uL (0.0-0.16); EOSINOPHILS 0.7 %; EOSINOPHILS ABSOLUTE 0.05 10/3/uL (0.0-0.53); HEMATOCRIT 36.2 % (36.0-48.0); HEMOGLOBIN 11.7 g/dL (12.0-16.0); IMMATURE GRANULOCYTES 0.3 %; IMMATURE GRANULOCYTES ABSOLUTE 0.02 10/3/uL (0.0-0.11); LYMPHOCYTES 30.2 %; LYMPHOCYTES ABSOLUTE 2.32 10/3/uL (0.67-4.30); MEAN CORPUS HGB CONC 32.3 g/dL (32.0-36.0); MEAN CORPUSCULAR VOLUME 92.8 fL (80-100); MEAN PLATELET VOLUME 9.1 fL (9.2-13.0); MONOCYTES 12.4 %; MONOCYTES ABSOLUTE 0.95 10/3/uL (0.21-1.20); NEUTROPHILS 56.3 %; NEUTROPHILS ABSOLUTE 4.33 10/3/uL (2.02-8.40); PLATELET COUNT 173 10/3/uL (150-400); RBC DISTRIBUTION WIDTH 14.9 % (12.0-16.0)
[2016-07-12 07:11] LABS: MANUAL DIFF NO %; WHITE BLOOD CELLS 7.7 10/3/uL (4.5-10.5)
[2016-07-12 07:16] LABS: CALCIUM, SERUM 8.2 MG/DL (8.5-10.4); CHLORIDE, SERUM 105 MMOL/L (96-112); CO2 (CARBON DIOXIDE) 28 MMOL/L (24-34); CREATININE 1.03 MG/DL (0.55-1.02); GFR AFRICAN AMERICAN 59 ML/MIN (>=60); GFR NON AFRICAN AMERICAN 51 ML/MIN (>=60); GLUCOSE, SERUM 96 MG/DL (60-99); POTASSIUM, SERUM 3.8 MMOL/L (3.5-5.3); SODIUM, SERUM 140 MMOL/L (135-148)
[2016-07-12 07:17] LABS: BUN (BLOOD UREA NITROGEN) 10 MG/DL (6-23)
[2016-07-13 07:00] LABS: BASOPHILS 0.3 %; BASOPHILS ABSOLUTE 0.02 10/3/uL (0.0-0.16); EOSINOPHILS 1.5 %; HEMATOCRIT 36.5 % (36.0-48.0); HEMOGLOBIN 11.6 g/dL (12.0-16.0); IMMATURE GRANULOCYTES 0.3 %; IMMATURE GRANULOCYTES ABSOLUTE 0.02 10/3/uL (0.0-0.11); MANUAL DIFF NO %; MEAN CORPUS HGB CONC 31.8 g/dL (32.0-36.0); MEAN CORPUSCULAR HEMOGLOB 29.9 pg (26.0-34.0); MEAN CORPUSCULAR VOLUME 94.1 fL (80-100); MEAN PLATELET VOLUME 9.3 fL (9.2-13.0); MONOCYTES 11.2 %; MONOCYTES ABSOLUTE 0.77 10/3/uL (0.21-1.20); NEUTROPHILS 51.7 %; NEUTROPHILS ABSOLUTE 3.55 10/3/uL (2.02-8.40); PLATELET COUNT 172 10/3/uL (150-400); RED CELL COUNT 3.88 10/6/uL (4.0-5.6); WHITE BLOOD CELLS 6.9 10/3/uL (4.5-10.5)
[2016-07-13 07:12] LABS: BUN (BLOOD UREA NITROGEN) 11 MG/DL (6-23); CALCIUM, SERUM 8.1 MG/DL (8.5-10.4); CHLORIDE, SERUM 107 MMOL/L (96-112); CO2 (CARBON DIOXIDE) 27 MMOL/L (24-34); CREATININE 1.11 MG/DL (0.55-1.02); GFR AFRICAN AMERICAN 54 ML/MIN (>=60); GFR NON AFRICAN AMERICAN 46 ML/MIN (>=60); GLUCOSE, SERUM 114 MG/DL (60-99); POTASSIUM, SERUM 4.3 MMOL/L (3.5-5.3); SODIUM, SERUM 143 MMOL/L (135-148)
[2016-07-14 05:26] LABS: INTERNATIONAL NORMAL RATI 1.3 UNITS (-); PROTIME (NOT ORD) 16.1 SEC (12.0-14.5)
[2016-07-14] MEDS ORDERED: PROTONIX PO (11:06)
== END 2016-07-14 13:29 | disposition home health service (06) | DRG 378 ==
LOC: ER 13:04 → 7NO 18:33
PROVIDERS: Internal Medicine Gastroenterology; Nurse Practitioner Family; Physician Assistant
PROC: 0DB68ZX Excision of Stomach, Via Natural or Artificial Opening Endoscopic, Diagnostic (ICD-10-PCS; principal; 2016-07-11 07:52)
PROC: 0DBH8ZZ Excision of Cecum, Via Natural or Artificial Opening Endoscopic (ICD-10-PCS; 2016-07-12)
DX: K92.2 Gastrointestinal hemorrhage, unspecified (principal); F13.20 Sedative, hypnotic or anxiolytic dependence, uncomplicated; I27.2 Other secondary pulmonary hypertension; I13.0 Hypertensive heart and chronic kidney disease with heart failure and stage 1 through stage 4 chronic kidney disease, or unspecified chronic kidney disease; Z99.81 Dependence on supplemental oxygen; I50.42 Chronic combined systolic (congestive) and diastolic (congestive) heart failure; I48.2 Chronic atrial fibrillation; J44.9 Chronic obstructive pulmonary disease, unspecified; G47.33 Obstructive sleep apnea (adult) (pediatric); N18.2 Chronic kidney disease, stage 2 (mild); E78.5 Hyperlipidemia, unspecified; I25.10 Atherosclerotic heart disease of native coronary artery without angina pectoris; Z95.5 Presence of coronary angioplasty implant and graft; M51.36 Other intervertebral disc degeneration, lumbar region; F41.1 Generalized anxiety disorder; K21.0 Gastro-esophageal reflux disease with esophagitis; D12.0 Benign neoplasm of cecum; Z79.01 Long term (current) use of anticoagulants
CPT/HCPCS: 70490; 71020; 80048; 80053; 81001; 83690; 83880; 84484; 85025; 85610; 85730; 88305; 93005; 93306; 94640; 99285; A9270-GY

== ENCOUNTER 2016-09-03 14:28 | Emergency (ER) | payer MEDICARE, OTHER ==
[~2016-09-03 14:28] MED LIST changes: +ACET500CAP PO; +DSS PO; +JANTOVEN1 MG PO; +KLOR-CON M2020 MEQ PO; +PRIN10 PO; +PROTONIX PO; +SENSIPAR30 M1 PO
[2016-09-03 16:39] LABS: BASOPHILS 0.3 %; BASOPHILS ABSOLUTE 0.02 10/3/uL (0.0-0.16); EOSINOPHILS 0.6 %; EOSINOPHILS ABSOLUTE 0.04 10/3/uL (0.0-0.53); HEMATOCRIT 37.1 % (36.0-48.0); HEMOGLOBIN 11.6 g/dL (12.0-16.0); IMMATURE GRANULOCYTES 0.1 %; IMMATURE GRANULOCYTES ABSOLUTE 0.01 10/3/uL (0.0-0.11); LYMPHOCYTES 41.6 %; LYMPHOCYTES ABSOLUTE 2.88 10/3/uL (0.67-4.30); MEAN CORPUS HGB CONC 31.3 g/dL (32.0-36.0); MEAN CORPUSCULAR HEMOGLOB 28.4 pg (26.0-34.0); MEAN PLATELET VOLUME 9.3 fL (9.2-13.0); MONOCYTES 9.1 %; MONOCYTES ABSOLUTE 0.63 10/3/uL (0.21-1.20); NEUTROPHILS 48.3 %; NEUTROPHILS ABSOLUTE 3.34 10/3/uL (2.02-8.40); PLATELET COUNT 151 10/3/uL (150-400); RBC DISTRIBUTION WIDTH 14.4 % (12.0-16.0); RED CELL COUNT 4.08 10/6/uL (4.0-5.6); WHITE BLOOD CELLS 6.9 10/3/uL (4.5-10.5)
[2016-09-03 16:40] LABS: MANUAL DIFF NO %; MEAN CORPUSCULAR VOLUME 90.9 fL (80-100)
[2016-09-03 16:54] LABS: CHLORIDE, SERUM 105 MMOL/L (96-112); CO2 (CARBON DIOXIDE) 28 MMOL/L (24-34); CREATININE 1.03 MG/DL (0.55-1.02); GFR AFRICAN AMERICAN 59 ML/MIN (>=60); GFR NON AFRICAN AMERICAN 51 ML/MIN (>=60); GLUCOSE, SERUM 95 MG/DL (60-99); SODIUM, SERUM 140 MMOL/L (135-148)
[2016-09-03 16:57] LABS: INTERNATIONAL NORMAL RATI 2.5 UNITS (-); PARTIAL THROMBO TIME 34.5 SEC (22.5-37.2)
[2016-09-03 16:58] LABS: BUN (BLOOD UREA NITROGEN) 22 MG/DL (6-23); CALCIUM, SERUM 9.3 MG/DL (8.5-10.4); CHEST PAIN PROFILE TAT 0 Hrs 23 Mins; TROPONIN I 0.16 NG/ML (<0.05)
[2016-09-03 17:00] LABS: PROTIME (NOT ORD) 26.7 SEC (12.0-14.5)
== END 2016-09-03 18:31 | disposition home or self-care (01) ==
LOC: ER 14:28
PROVIDERS: Nurse Practitioner Family
DX: I82.5Z1 Chronic embolism and thrombosis of unspecified deep veins of right distal lower extremity (principal); I82.812 Embolism and thrombosis of superficial veins of left lower extremity; R79.89 Other specified abnormal findings of blood chemistry; G47.30 Sleep apnea, unspecified; J44.9 Chronic obstructive pulmonary disease, unspecified; I48.91 Unspecified atrial fibrillation; I13.0 Hypertensive heart and chronic kidney disease with heart failure and stage 1 through stage 4 chronic kidney disease, or unspecified chronic kidney disease; I50.9 Heart failure, unspecified; N18.9 Chronic kidney disease, unspecified; F41.9 Anxiety disorder, unspecified; I25.10 Atherosclerotic heart disease of native coronary artery without angina pectoris; Z95.5 Presence of coronary angioplasty implant and graft; Z95.0 Presence of cardiac pacemaker; Z87.891 Personal history of nicotine dependence; Z88.5 Allergy status to narcotic agent; Z79.01 Long term (current) use of anticoagulants; Z79.899 Other long term (current) drug therapy
CPT/HCPCS: 71010; 80048; 83735; 83880; 84484; 85025; 85610; 85730; 93005; 93970; 99284; A9270-GY